=== PATIENT | male | born 1965 | race Caucasian/White ===

== ENCOUNTER 2017-04-12 07:58 | Inpatient (IN) | payer BC, OTHER ==
[~2017-04-12] VITALS: Ht 180.3 cm; Wt 72.6 kg
[2017-04-12] MEDS ORDERED: LORAZEPAM 1 MG TABLET PO PRN ×2 (21:30)
[2017-04-12] MEDS ORDERED: ONDANSETRON 4 MG/2 ML VIAL IM PRN (21:30)
[2017-04-12] MEDS ORDERED: BUPRENORPHINE HCL 2 MG TAB.SUBL SL PRN (21:30)
[2017-04-12] MEDS ORDERED: NICOTINE POLACRILEX 4 MG GUM-PK OF TEN BC PRN (21:30)
[2017-04-12] MEDS ORDERED: CLONIDINE HCL 0.1 MG TABLET PO PRN (21:30)
[2017-04-12] MEDS ORDERED: MIRALAX 17 GM POWD.PACK PO PRN (21:30)
[2017-04-12] MEDS ORDERED: LOPERAMIDE HCL 2 MG CAPSULE PO PRN ×2 (21:30)
[2017-04-12] MEDS ORDERED: ONDANSETRON ODT 4 MG TAB.RAPDIS SL PRN (21:30)
[2017-04-12] MEDS ORDERED: MAG HYDROX/AL HYDROX/SIMETH 30 ML LIQUID UDC PO PRN (21:30)
[2017-04-12] MEDS ORDERED: DOCUSATE SODIUM 250 MG CAPSULE PO PRN (21:30)
[2017-04-12] MEDS ORDERED: THIAMINE HCL 200 MG/2 ML VIAL IM ONE (21:30)
[2017-04-12] MEDS ORDERED: IBUPROFEN 600 MG TABLET PO PRN (21:30)
[2017-04-12] MEDS ORDERED: NICOTINE 14 MG/24HR PATCH TD PRN (21:30)
[2017-04-12] MEDS ORDERED: LORAZEPAM 2 MG/1 ML VIAL IM PRN (21:30)
[2017-04-12] MEDS ORDERED: ACETAMINOPHEN 325 MG TABLET PO PRN (21:30)
[2017-04-12] MEDS ORDERED: METHOCARBAMOL 750 MG TABLET PO PRN (21:30)
[2017-04-12] MEDS ORDERED: MAGNESIUM HYDROXIDE 30 ML LIQUID UDC PO PRN (21:30)
--- NOTE | 2017-04-12 21:35 | NUR ---
Pre-Admission Note Pt is a 52 y/o male, seen at intake, AAOx4, no SOB with anxiety noted at this time. Discussed with patient the admission policies of the unit. Patient is coherent and able to respond to questions appropriately. Pt is ambulatory with steady gait. Vital signs taken and as follows: BP: 139/91, P: 100, R: 20, O2: 96%, T: 98.1, PA: 0/10 Pt verbalized understanding of instructions and teachings regarding disposal of narcotic and other controlled home medications, unit protocols such as taking of vital signs Q4H and handling and disposal of contraband. Will continue with admission upon pts arrival on the unit.
[2017-04-12 21:43] VITALS: BP 139/91
--- NOTE | 2017-04-12 21:43 | NUR ---
Admission Note Pt is a 52 y/o male admitted on 04/12/17 for ETOH/Opiate dependence, arrived on the unit at 2143. Pt was able to provide UDS during intake. Pt reports NKA, reports seizure episode "about 7 days ago in the hospital". Pt was hospitalized at [facility] d/t withdrawal induced seizure . VS: BP: 139/91, P: 100, R: 20, O2: 96%, T: 98.1, PA: 0/10. Weight 160, height 511. Pt reports he does not have a PCP, smokes approximately 1 pack cigarettes daily. Pt is able to understand and respond to all questions pertaining to his hospitalization. Substance Abuse History is as follows: 1. Vodka 1750ml (1.75 liters)/daily, last intake of 1750ml on 04/06/2017, at this rate for the past 6 months. Pt reports he has been drinking for 20 years. 2. Butrans (Buprenorphine) Patch - 20mcg/hr every 7 days, last intake of 20mcg/hr on 04/09/2017, pt has been using for 4 years. Patch removed during intake process. Pt reports he was hospitalized "7 days ago at [facility] for seizure episode". Pt reports he was given Oxazepam for seizures and ETOH withdrawal, hence positive result of benzodiazepine in urine drug screen. Pts longest sober period from 2002 2013. Pt reports treatment history: [facility], 2002 for 90 days and [facility], 4 months ago for 30 days ago. PMH: Anxiety, depression, DM II, neuropathic pain, liver cirrhosis, hepatitis B and seizure episode 7 days ago due to ETOH withdrawal. Upon assessment, pt is AAOx4 and presents with anxiety, irritability, sweats, fine tremors and flushed skin with scab noted in between eye brows. Respirations even and unlabored. Denies SOB or chest pain. Bowel sounds active x 4, abdomen soft. PERRLA. Pt denies SI/HI at this time. Reports having history of suicidal thoughts with no plan. Educational information provided and left at bedside. Pt oriented to room and encouraged to notify staff with any concerns. Safety measures in place. Call light within reach, side rails up x 2, bed locked and in low position. Will continue to monitor.
[2017-04-12] MEDS ORDERED: OXAZ15CA PO (21:57)
[2017-04-12] MEDS ORDERED: GABA-534 PO (21:57)
[2017-04-12] MEDS ORDERED: QUET150T PO (21:57)
[2017-04-12] MEDS ORDERED: BUPR1PAT3 TD (21:57)
[2017-04-12] MEDS ORDERED: LORAZEPAM 1 MG TABLET PO SCH (23:00)
[2017-04-12 23:02] LABS: *AMPHETAMINE, URINE NEGATIVE (NEGATIVE); *BARBITURATE, URINE NEGATIVE (NEGATIVE); *CANNABINOID, URINE NEGATIVE (NEGATIVE); *COCCAINE, URINE NEGATIVE (NEGATIVE); *OPIATE, URINE NEGATIVE (NEGATIVE); *PHENCYCLIDINE SCREEN,URINE NEGATIVE (NEGATIVE)
[2017-04-12] MEDS: diphenhydrAMINE 50 MG CAPSULE PO PRN (23:26)
--- NOTE | 2017-04-12 23:26 | NUR ---
PRN Administration Scheduled Ativan 2mg and Benadryl 50mg PRN administered for sleep. Pt refused ordered Vitamin B1 injection. Education provided, risks/benefits explained. Safety measures in place, will continue to monitor.
[2017-04-12] MEDS ORDERED: diphenhydrAMINE 50 MG CAPSULE ONE (23:41)
[2017-04-12] MEDS ORDERED: LORAZEPAM 1 MG TABLET ONE (23:41)
[2017-04-13] VITALS: BP 126/86
--- NOTE | 2017-04-13 00:26 | NUR ---
PRN Reassessment Upon reassessment, pt is in bed, resting with eyes closed, respirations even/unlabored. Safety measures in place, will continue to monitor.
[2017-04-13] MEDS ORDERED: BUPR1FIL3 SL (02:04)
[2017-04-13] MEDS: KETOROLAC TROMETHAMINE 30 MG INJ IM PRN ×2 (03:24→16:41)
--- NOTE | 2017-04-13 03:26 | NUR ---
PRN Administration CIWA 10, pt is tremulous, dizzy/lightheaded, anxious, skin is flushed and clammy. Reports back ache 10/10. Ativan 1mg PRN and Toradol 30mg inj PRN administered. Safety measures in place, will continue to monitor.
[2017-04-13] MEDS ORDERED: KETOROLAC TROMETHAMINE 30 MG INJ ONE (03:36)
[2017-04-13] MEDS ORDERED: LORAZEPAM 1 MG TABLET ONE (03:41)
[2017-04-13 04:00] VITALS: BP 135/87
--- NOTE | 2017-04-13 04:26 | NUR ---
PRN Reassessment CIWA 8, pt in bed, resting. Pt reports relief of back pain. BP 135/87, pulse 93, resp 16, SpO2 97% room air, temp 98.1. Safety measures in place, will continue to monitor.
--- NOTE | 2017-04-13 07:07 | NUR ---
End of Shift Pt is a 52 year old male admitted for ETOH/Opiate dependence, placed on 5 day Ativan and 5 day Subutex taper. Pt reported using Vodka 1750ml (1.75 liters)/daily and Butrans (Buprenorphine)Patch - 20mcg/hr every 7 days. NKA, Diabetic diet, fall/seizure precautions and full code. Seizure episode 7 days ago due to ETOH withdrawal. PMH: Anxiety, depression, DM II, neuropathic pain, liver cirrhosis and hepatitis B. During shift scheduled Ativan 2mg administered along with Benadryl 50mg PRN for sleep. At 0326, Toradol 30mg inj PRN and Ativan 1mg PRN administered for elevated CIWA and back ache, effective. Latest COWS 4 and CIWA 8. Pt slept for 1 hours, intake of 591ml PO, voids x2 and stool x0. Safety measures in place, call light within reach, side rails up x2, bed locked and in low [id number]. Endorsed to day shift nurse.
--- NOTE | 2017-04-13 07:45 | NUR ---
START OF SHIFT PT IS A 52 Y/O M ADMITTED FOR ETOH AND OPIATE DEPENDENCE. PT IS ON 5 DAY ATIVAN AND 5 DAY SUBUTEX TAPER. PT REPORTS HAVING STOMACH SPASMS, GENERALIZED BODY ACHES, TEARING, FEELING COLD AND HOT INTERMITTENTLY, SLIGHT NAUSEA, MILD VISUAL DISTURBANCES, DIZZINESS. PT REPORTS HAVING PAIN AND NUMBNESS ON THE FEET AND FINGERS. PT REPORTS WALKING AND STRETCHING HELPS WITH PAIN. PT APPEARS TO BE FLUSHED AND TREMORS ARE SEEN. ENCOURAGED PT TO CONSUME MORE FLUIDS FOR HYDRATION. SIDE RAILS UP X2, BED IN LOWEST POSITION, CALL LIGHT WITHIN REACH. SZ AND FALL PRECAUTIONS TAKEN. WILL CONTINUE TO MONITOR AND PROVIDE SUPPORT.
[2017-04-13 08:00] VITALS: BP 125/88
[2017-04-13] MEDS: METFORMIN HCL 500 MG TABLET PO SCH ×2 (08:03→17:57)
[2017-04-13] MEDS: FOLIC ACID 1 MG TABLET PO SCH (08:03)
[2017-04-13] MEDS: DICYCLOMINE HCL 20 MG TABLET PO PRN ×2 (08:03→14:06)
[2017-04-13] MEDS: BUPRENORPHINE HCL 2 MG TAB.SUBL SL SCH ×4 (08:03→20:04)
[2017-04-13] MEDS: THIAMINE HCL 100 MG TABLET PO SCH (08:03)
[2017-04-13] MEDS: PREGABALIN 100 MG CAPSULE PO SCH ×2 (08:03→16:29)
[2017-04-13] MEDS: MULTIVITAMINS,THERAPEUTIC TABLET PO SCH (08:03)
[2017-04-13] MEDS: LORAZEPAM 1 MG TABLET PO SCH ×3 (08:03→20:04)
--- NOTE | 2017-04-13 08:03 | NUR ---
PRN PT C/O OF STOMACH CRAMPS AND SPASMS. BENTYL PO PRN GIVEN AT [phone]. WILL CONTINUE TO MONITOR FOR EFFECTIVENESS.
[2017-04-13 08:46] LABS: BASOPHILS # (AUTO) 0.1 K/uL (0.0-8.0); BASOPHILS % (AUTO) 0.8 % (0.0-2.0); EOSINOPHILS # (AUTO) 0.3 K/uL (0.0-0.7); EOSINOPHILS % (AUTO) 3.2 % (0.0-7.0); HEMATOCRIT 37.3 % (36.7-47.1); HEMOGLOBIN 12.8 g/dL (12.5-16.3); LYMPHOCYTES # (AUTO) 2.8 K/uL (20.0-40.0); LYMPHOCYTES % (AUTO) 34.5 % (20.5-51.5); MEAN CORPUSCULAR HEMOGLOBIN 30.8 uug (23.8-33.4); MEAN CORPUSCULAR HGB CONC 34 g/dL (32.5-36.3); MEAN CORPUSCULAR VOLUME 89.9 fL (73.0-96.2); MONOCYTES # (AUTO) 0.9 K/uL (2.0-10.0); MONOCYTES % (AUTO) 10.5 % (0.0-11.0); NEUTROPHILS # (AUTO) 4.2 K/uL (1.8-8.9); PLATELET COUNT (AUTO) 177 K/uL (152-348); RED BLOOD CELL COUNT(AUTO) 4.15 MIL/uL (4.06-5.63); WHITE BLOOD COUNT (AUTO) 8.2 K/uL (3.6-10.2)
[2017-04-13] MEDS ORDERED: TUBERCULIN,PURIF.PROT.DERIV. 5 TU/0.1 ML TEST ID ONE (09:00)
--- NOTE | 2017-04-13 09:03 | NUR ---
REASSESSMENT PT REPORTED THE MED WAS EFFECTIVE FOR HIS STOMACH CRAMPS AND SPASMS. WILL CONTINUE TO MONITOR AND PROVIDE SUPPORT.
[2017-04-13 09:11] LABS: ALANINE AMINOTRANSFERASE 100 U/L (16-63); ALKALINE PHOSPHATASE 102 U/L (50-136); ASPARTATE AMINOTRANSFERASE 48 U/L (15-37); BILIRUBIN,TOTAL 0.4 mg/dL (0.2-1.0); CARBON DIOXIDE 28 mmol/L (21-32); CHLORIDE 105 mmol/L (98-107); GLUCOSE 217 mg/dL (74-106); TOTAL PROTEIN, SERUM 7.2 g/dL (6.4-8.2); UREA NITROGEN, BLOOD 11 mg/dL (7-18)
[2017-04-13 09:17] LABS: ETHANOL < 3 MG/DL (0-0)
[2017-04-13] MEDS: GLIMEPIRIDE 2 MG TABLET PO SCH (09:19)
[2017-04-13 12:00] VITALS: BP 129/97
--- NOTE | 2017-04-13 12:38 | NUR ---
PRN PT STATED, "I JUST WOKE UP SHAKING VIOLENTLY AND I ONLY FELL ASLEEP FOR A SECOND." PT REPORTED HAVING HIGH ANXIETY AND PT APPEARS TO HAVING FACIAL FLUSHING. ATIVAN 2 MG PO PRN GIVEN. WILL CONTINUE TO MONITOR. Addendum: 04/13/17 at 1248 by KESHIA GROVES RN GROSS TREMORS SEEN. IGNACIA Low.
--- NOTE | 2017-04-13 12:52 | NUR ---
PRN PT C/O PAIN IN THE BACK AND FEET 6-10/18 PAIN. MOTRIN 600 MG PO PRN GIVEN. WILL CONTINUE TO MONITOR.
--- NOTE | 2017-04-13 13:36 | NUR ---
REASSESSMENT PT VERBALIZED ATIVAN WAS EFFECTIVE FOR HIS S/S OF W/D. PT APPEARS TO BE LESS ANXIOUS AND TREMULOUS. WILL CONTINUE TO MONITOR AND PROVIDE SUPPORT.
--- NOTE | 2017-04-13 13:52 | NUR ---
REASSESSMENT PT REPORTED MOTRIN WAS EFFECTIVE LOWERING PAIN TO TOLERABLE LEVELS. 07/19. WILL CONTINUE TO MONITOR AND PROVIDE SUPPORT.
--- NOTE | 2017-04-13 14:06 | NUR ---
PRN PT C/O OF STOMACH PAIN AND SPASMS; REQUESTED BENTYL. GIVEN AT 1406. WILL CONTINUE TO MONITOR FOR EFFECTIVENESS.
--- NOTE | 2017-04-13 15:06 | NUR ---
REASSESSMENT PT REPORTED BENTYL WAS EFFECTIVE FOR STOMACH CRAMPS AND SPASMS. WILL CONTINUE TO MONITOR.
[2017-04-13 16:00] VITALS: BP 139/93
--- NOTE | 2017-04-13 16:50 | NUR ---
PRN PT C/O PAIN IN THE BACK, NECK, FEET, AND JOINTS. 9/10 PAIN. TORADOL 30 MG IM INJ GIVEN. SZ AND FALL SAFETY PRECAUTIONS IN PLACE. WILL CONTINUE TO MONITOR.
--- NOTE | 2017-04-13 17:50 | NUR ---
REASSESSMENT PT REPORTED THE TORADOL WAS EFFECTIVE IN REDUCING HIS PAIN TO TOLERABLE LEVELS. WILL CONTINUE TO MONITOR AND PROVIDE SUPPORT.
--- NOTE | 2017-04-13 18:58 | NUR ---
END OF SHIFT PT IS A 52 Y/O M ADMITTED FOR ETOH AND OPIATE DEPENDENCE. PT IS ON 5 DAY ATIVAN AND SUBUTEX TAPER. PT APPEARS TO BE FLUSHED AND ANXIOUS. TREMORS ARE SEEN. PT REPORTS HAVING STOMACH SPASMS, GENERALIZED BODY ACHES, TEARING IN THE EYES, MILD NAUSEA, MILD VISUAL DISTURBANCES, AND INTERMITTENT DIZZINESS. PT REPORTS HAVING PINS AND NEEDLE-TYPE PAIN ON THE DISTAL FEET AND FINGERS. PT REPORTS WALKING AND STRETCHING HELPS WITH THE PAIN. PT ALSO REPORTS HAVING PAIN IN THE NECK, BACK, JOINTS THROUGHOUT THE DAY; TORADOL 30 IM INJ GIVEN AT 1640 AND WAS EFFECTIVE. ATIVAN 2 MG PO PRN GIVEN AT 1238 FOR INCREASED S/S OF W/D; PT REPORTED MED WAS EFFECTIVE. LAST COWS 8 AND CIWA 9 AT 1600. ENCOURAGED PT TO CONSUME MORE FLUIDS FOR HYDRATION. SIDE RAILS UP X2, BED IN LOWEST POSITION, CALL LIGHT WITHIN REACH. SZ AND FALL PRECAUTION MEASURES IN PLACE. WILL GIVE ALL ENDORSEMENT AND PERTINENT DATA TO MANAGER OF COMPLIANCE NURSE.
[2017-04-13 20:00] VITALS: BP 130/95
--- NOTE | 2017-04-13 20:00 | NUR ---
Start of Shift Pt is a 52 year old male admitted for ETOH/Opiate dependence, placed on 5 day Ativan and 5 day Subutex taper. Pt reported using Vodka 1750ml (1.75 liters)/daily and Butrans (Buprenorphine)Patch - 20mcg/hr every 7 days. NKA, Diabetic diet, fall/seizure precautions and full code. Seizure episode 7 days ago due to ETOH withdrawal. PMH: Anxiety, depression, DM II, neuropathic pain, liver cirrhosis and hepatitis B. Upon assessment, presents with muscle aches, back/joint aches, skin is flushed/clammy, tremors visible, reports chills, stomach cramps respirations even/unlabored, denies SOB/chest pain, denies n/v/d, medications due. Safety measures in place, will continue to monitor.
[2017-04-14] VITALS: BP 128/93
[2017-04-14] MEDS: diphenhydrAMINE 50 MG CAPSULE PO PRN (00:35)
[2017-04-14] MEDS: KETOROLAC TROMETHAMINE 30 MG INJ IM PRN ×4 (00:36→23:31)
--- NOTE | 2017-04-14 00:36 | NUR ---
PRN Administration Pt reports body aches rated 9/10. Pt requests sleep aid. Toradol 30mg Inj and Benadryl 50mg PRN administered. Safety measures in place, will continue to monitor.
--- NOTE | 2017-04-14 01:36 | NUR ---
PRN Reassessment Upon reassessment, pt denies body aches. Needs met, safety measures, will continue to monitor.
[2017-04-14 04:00] VITALS: BP 136/92
--- NOTE | 2017-04-14 04:00 | NUR ---
TRANG/CIWA deferred d/t pt sleeping, to assess while pt is awake as ordered. BP 136/92, pulse 87, resp 16, Spo2 99% room air, temp 97.[address], will continue to monitor.
--- NOTE | 2017-04-14 07:00 | NUR ---
End of Shift Pt is a 52 year old male admitted for ETOH/Opiate dependence, placed on 5 day Ativan and 5 day Subutex taper. Pt reported using Vodka 1750ml (1.75 liters)/daily and Butrans (Buprenorphine)Patch - 20mcg/hr every 7 days. NKA, Diabetic diet, fall/seizure precautions and full code. Seizure episode 7 days ago due to ETOH withdrawal. PMH: Anxiety, depression, DM II, neuropathic pain, liver cirrhosis and hepatitis B. During shift, presented with muscle aches, back/joint aches, skin flushed/clammy, tremors visible, reported chills, stomach cramps scheduled taper medications administered, COWS 9 and CIWA 9. Toradol 30mg inj and Benadryl 50mg PRN administered for body aches and sleep. Pt slept for 5 hours, intake of 850 ml PO, voids x2 and stool x0. Safety measures in place, call light within reach, side rails up x2, bed locked and in low position. Endorsed to day shift nurse.
[2017-04-14 08:00] VITALS: BP 126/88
[2017-04-14] MEDS: PREGABALIN 100 MG CAPSULE PO SCH ×2 (08:08→17:17)
[2017-04-14] MEDS: THIAMINE HCL 100 MG TABLET PO SCH (08:09)
[2017-04-14] MEDS: MULTIVITAMINS,THERAPEUTIC TABLET PO SCH (08:09)
[2017-04-14] MEDS: FOLIC ACID 1 MG TABLET PO SCH (08:09)
[2017-04-14] MEDS: BUPRENORPHINE HCL 2 MG TAB.SUBL SL SCH ×3 (08:09→20:31)
[2017-04-14] MEDS: METFORMIN HCL 500 MG TABLET PO SCH ×2 (08:09→17:17)
--- NOTE | 2017-04-14 08:10 | NUR ---
PRN TORADOL IM INJECTION Patient reports pain 8/10, generalized body aches. PRN toradol IM given. Will continue to monitor patient.
[2017-04-14] MEDS: GLIMEPIRIDE 2 MG TABLET PO SCH (08:11)
--- NOTE | 2017-04-14 08:22 | NUR ---
START OF SHIFT Received report from test technician nurse. Patient is 52 year old male admitted for medically supervised withdrawal from alcohol and opiate. Patient is full code with NKA. On 5-Day Ativan and 5-Day Subutex taper. On assessment this AM: CIWA: 12 and COWS: 9. Denies SOB, chest pain. Patients vitals signs WNL. Patient reports anxiety, tremors, headache, body aches, nausea, stomach cramping, and tactile disturbances. Denies stuffy nose, vomiting, diarrhea, auditory or visual hallucinations, yawning and no pupil dilation noted. Compliant with AM meds. PRN toradol IM injection given for pain 11/18. Last BM was 2 days ago. Patient has steady gait. Encouraged to attend group meetings today. Will continue to monitor patient.
--- NOTE | 2017-04-14 08:40 | NUR ---
REASSESSMENT PRN TORADOL IM INJECTION Patient reports pain decreased to 6/10, meed effective per patient.
[2017-04-14] MEDS ORDERED: LORAZEPAM 1 MG TABLET PO SCH ×2 (09:00→21:00)
--- NOTE | 2017-04-14 10:03 | NUR ---
Therapist prompted client to attend daily group sessions. Client related that he would if he was feeling up to it.
[2017-04-14 12:00] VITALS: BP 131/90
[2017-04-14] MEDS: LORAZEPAM 1 MG TABLET PO SCH ×2 (12:51→17:17)
--- NOTE | 2017-04-14 12:54 | NUR ---
PRN ROBAXIN AND CLONIDINE Patient complains of increasing anxiety and body aches. PRN clonidine (131/90, HR 94) and robaxin given. Will continue to monitor patient.
[2017-04-14 13:07] LABS: HEPATITIS B SURFACE AG Negative (Negative)
--- NOTE | 2017-04-14 13:54 | NUR ---
REASSESSMENT PRN ROBAXIN AND CLONIDINE Patient reports anxiety improved and body aches decreased to 5/10. Meds effective.
[2017-04-14] MEDS: DICYCLOMINE HCL 20 MG TABLET PO SCH ×2 (14:31→20:31)
[2017-04-14] MEDS: BACLOFEN 10 MG TABLET PO SCH ×2 (14:31→20:31)
[2017-04-14 16:00] VITALS: BP 129/92
--- NOTE | 2017-04-14 17:18 | NUR ---
PRN TORADOL IM INJECTION Patient complains of body aches 11/18. PRN toradol IM injection given. Will continue to monitor patient.
--- NOTE | 2017-04-14 17:48 | NUR ---
REASSESSMENT PRN TORADOL IM INJECTION Patient reports pain decreased to 5/10, med effective.
--- NOTE | 2017-04-14 18:50 | NUR ---
END OF SHIFT Patient is 52 year old male admitted for medically supervised withdrawal from alcohol and opiate. Patient is full code with NKA. On 5-Day Ativan and 5-Day Subutex taper. Most recent CIWA: 10 and COWS: 10. Reports anxiety, body aches, tremors, and tactile disturbances. PRN toradol IM injection X2, robaxin X1 and clonidine X1 given this shift, effective. Med complaint this shift. Ambulating with steady gait, no falls noted. Tolerated meals without nausea or vomiting. transport operations inspectormold shifter will continue to monitor patient.
[2017-04-14 20:00] VITALS: BP 124/87
--- NOTE | 2017-04-14 20:00 | NUR ---
Start of Shift Pt is a 52 year old male admitted for ETOH/Opiate dependence, placed on 5 day Ativan and 5 day Subutex taper. Pt reported using Vodka 1750ml (1.75 liters)/daily and Butrans (Buprenorphine)Patch - 20mcg/hr every 7 days. NKA, Diabetic diet, fall/seizure precautions and full code. Seizure episode 7 days ago due to ETOH withdrawal. PMH: Anxiety, depression, DM II, neuropathic pain, liver cirrhosis and hepatitis B. Upon assessment, pt reports feeling anxious/restless, presents with muscle aches, skin is flushed/clammy, tremors visible, reports chills, respirations even/unlabored, denies SOB/chest pain, denies n/v/d, medications due. Safety measures in place, will continue to monitor.
[2017-04-14] MEDS: QUETIAPINE FUMARATE 100 MG TABLET PO SCH (20:32)
[2017-04-14] MEDS: CLONIDINE HCL 0.1 MG TABLET PO SCH (20:32)
[2017-04-14] MEDS ORDERED: LORAZEPAM 1 MG TABLET PO ONE (23:30)
--- NOTE | 2017-04-14 23:31 | NUR ---
PRN Administration Pt reports 9/10 body aches. Pt is restless, anxious and is seen pacing hallways. Toradol 30mg inj PRN and Ativan 2mg x1 administered for pain and anxiety. Safety measures in place, will continue to monitor.
[2017-04-14] MEDS ORDERED: LORAZEPAM 1 MG TABLET ONE (23:40)
[2017-04-15] VITALS: BP 123/76
--- NOTE | 2017-04-15 00:31 | NUR ---
PRN Reassessment Pt is in bed watching TV. Pt reports feeling calmer, reports body aches have decreased to 4/10 and subsiding. Needs met, safety measures in place, will continue to monitor.
[2017-04-15 04:00] VITALS: BP 100/71
--- NOTE | 2017-04-15 07:00 | NUR ---
End of Shift Pt is a 52 year old male admitted for ETOH/Opiate dependence, placed on 5 day Ativan and 5 day Subutex taper. Pt reported using Vodka 1750ml (1.75 liters)/daily and Butrans (Buprenorphine)Patch - 20mcg/hr every 7 days. NKA, Diabetic diet, fall/seizure precautions and full code. Seizure episode 7 days ago due to ETOH withdrawal. PMH: Anxiety, depression, DM II, neuropathic pain, liver cirrhosis and hepatitis B. During shift, pt reported feeling anxious/restless, presented with muscle aches, skin flushed/clammy, tremors visible, reported chills scheduled taper medications administered, COWS 7 and CIWA 8. Ativan 2mg x1 and Toradol 30mg injection administered, effective. Pt slept for 2 hours, intake of 1250 ml PO, voids x2 and stool x0. Safety measures in place, call light within reach, side rails up x2, bed locked and in low position, endorsed to day shift nurse.
--- NOTE | 2017-04-15 08:08 | NUR ---
Nursing Note: Received pt in bedisde chair naping, verbalizing that did not got enough sleep, v/s stable, denies any other problem, no c/o pain.
[2017-04-15 08:49] VITALS: BP 117/77
[2017-04-15] MEDS: DICYCLOMINE HCL 20 MG TABLET PO SCH ×3 (08:50→21:39)
[2017-04-15] MEDS: METFORMIN HCL 500 MG TABLET PO SCH ×3 (08:51→18:00)
[2017-04-15] MEDS: CLONIDINE HCL 0.1 MG TABLET PO SCH ×3 (08:51→21:39)
[2017-04-15] MEDS: GLIMEPIRIDE 2 MG TABLET PO SCH (08:51)
[2017-04-15] MEDS: LORAZEPAM 1 MG TABLET PO SCH ×3 (08:52→21:38)
[2017-04-15] MEDS: THIAMINE HCL 100 MG TABLET PO SCH (08:53)
[2017-04-15] MEDS: MULTIVITAMINS,THERAPEUTIC TABLET PO SCH (08:53)
[2017-04-15] MEDS: FOLIC ACID 1 MG TABLET PO SCH (08:53)
[2017-04-15] MEDS: BACLOFEN 10 MG TABLET PO SCH (08:53)
[2017-04-15] MEDS: PREGABALIN 100 MG CAPSULE PO SCH ×3 (08:53→21:39)
[2017-04-15] MEDS ORDERED: BUPRENORPHINE HCL 2 MG TAB.SUBL SL SCH (09:00)
[2017-04-15 12:59] VITALS: BP 104/70
--- NOTE | 2017-04-15 13:45 | NUR ---
Pt in bed awake, alert, oriented x4 verbally responsive, ambulatory, self care, able to let know needs,was taking vodka 1750 ml daily for 6 month also butrams patch, he has hx of livedr cirrhosis, depresion, diabetic, hep B, spine/ limbar/r sholuder pain, and neuropathic pain, pt is constanlly in pain but able to funtion, on pain meds, pt likes to go smoke, is complient with meds, encourage to attend to groups, on ativan and subutex for 5 day, will continue monitoring a/r of any meds.
[2017-04-15] MEDS ORDERED: METHYL SALICYLATE/MENTHOL CREAM 28 GM TUBE TOP PRN (14:45)
[2017-04-15] MEDS: BUPRENORPHINE HCL 2 MG TAB.SUBL SL SCH ×2 (14:51→21:40)
[2017-04-15] MEDS ORDERED: NAPROXEN 500 MG TABLET PO ONE (15:00)
[2017-04-15 16:00] VITALS: BP 112/72
[2017-04-15] MEDS: ACETAMINOPHEN 325 MG TABLET PO SCH ×2 (16:36→21:38)
--- NOTE | 2017-04-15 17:49 | NUR ---
pt out for patio brake, alert, oriented x4, verbally responsive, ambulatory with good steady gait, continue on ativan an subutex taper,cows 5, c/o generalized pain 2/10, denies any n/v at this time, attended to some groups today, no distress and also continue with smoke brakes.
--- NOTE | 2017-04-15 18:49 | NUR ---
End note: there are no changes
--- NOTE | 2017-04-15 19:15 | NUR ---
START OF SHIFT NOTE : t is a 52 year old male admitted for ETOH/Opiate dependence, placed on 5 day Ativan and 5 day Subutex taper. NKA, Diabetic diet, fall/seizure precautions and full code. Seizure episode 7 days ago due to ETOH withdrawal. PMH: Anxiety, depression, DM II, neuropathic pain, liver cirrhosis and hepatitis B. Upon assessment pt. is resting in the room , watching TV, reports feeling anxious/restless, respirations even/unlabored, denies SOB/chest pain, denies n/v/d, medications due. Safety measures in place : bed on lowest position with side rails x2 up for safety, call light within reach. Will continue to monitor closely and offer help.
[2017-04-15 20:00] VITALS: BP 104/74
[2017-04-15] MEDS: NAPROXEN 500 MG TABLET PO SCH (21:38)
[2017-04-15] MEDS: BACLOFEN 20 MG TABLET PO SCH (21:39)
[2017-04-15] MEDS: QUETIAPINE FUMARATE 100 MG TABLET PO SCH (21:39)
--- NOTE | 2017-04-16 06:42 | NUR ---
END OF SHIFT NOTE : t is a 52 year old male admitted for ETOH/Opiate dependence, placed on 5 day Ativan and 5 day Subutex taper. NKA, Diabetic diet, fall/seizure precautions and full code. Seizure episode 7 days ago due to ETOH withdrawal. PMH: Anxiety, depression, DM II, neuropathic pain, liver cirrhosis and hepatitis B. Pt remains compliant with the treatment plan. No PRNs were given during my shift. V/S remain WNL. RR=16, even and unlabored, lungs clear upon auscultation, abdomen soft and non- distended. Pt denies nausea, vomiting and diarrhea. CIWA and COWS taken when pt. was alert during the night, LAST CIWA=5 ,COWS=5 at 0400 , INTAKE= 1,000 ml, voided x3 , slept 6 hours. Safety measures in place : bed on lowest position with side rails x2 up for safety, call light within reach. Will continue to monitor closely and offer help.
--- NOTE | 2017-04-16 07:47 | NUR ---
START OF SHIFT RECEIVED PT RESTING IN BED, A/O X4, RESPIRATIONS EVEN AND UNLABORED. PT REPORTS FEELING ANXIOUS AND RESTLESS, HAVING GENERALIZED BODY ACHES, PAIN IN THE DISTAL FEET AND HANDS. ENCOURAGED PT TO CONSUME MORE FLUIDS FOR HYDRATION. SIDE RAILS X2, BED IS IN LOWEST POSITION. CALL LIGHT IS WITHIN REACH. PT IS ON SZ AND FALL PRECAUTIONS. WILL CONTINUE TO MONITOR AND PROVIDE SUPPORT.
[2017-04-16 08:00] VITALS: BP 119/83
[2017-04-16 08:56] LABS: CREATININE 0.8 mg/dL (0.6-1.3); MAGNESIUM 2.2 mg/dL (1.8-2.4); POTASSIUM 4.1 mmol/L (3.5-5.1)
[2017-04-16] MEDS ORDERED: LORAZEPAM 1 MG TABLET PO SCH (09:00)
[2017-04-16] MEDS: GLIMEPIRIDE 2 MG TABLET PO SCH (09:18)
[2017-04-16] MEDS: NAPROXEN 500 MG TABLET PO SCH ×2 (09:18→21:56)
[2017-04-16] MEDS: DICYCLOMINE HCL 20 MG TABLET PO SCH ×3 (09:18→21:57)
[2017-04-16] MEDS: PREGABALIN 100 MG CAPSULE PO SCH ×3 (09:18→21:56)
[2017-04-16] MEDS: THIAMINE HCL 100 MG TABLET PO SCH (09:18)
[2017-04-16] MEDS: ACETAMINOPHEN 325 MG TABLET PO SCH ×3 (09:18→21:56)
[2017-04-16] MEDS: METFORMIN HCL 500 MG TABLET PO SCH ×2 (09:18→18:14)
[2017-04-16] MEDS: BACLOFEN 20 MG TABLET PO SCH ×3 (09:19→21:56)
[2017-04-16] MEDS: LORAZEPAM 1 MG TABLET PO SCH ×3 (09:19→21:56)
[2017-04-16] MEDS: FOLIC ACID 1 MG TABLET PO SCH (09:19)
[2017-04-16] MEDS: CLONIDINE HCL 0.1 MG TABLET PO SCH ×3 (09:19→21:57)
[2017-04-16] MEDS: FAMOTIDINE 20 MG TABLET PO SCH (09:19)
[2017-04-16] MEDS: MULTIVITAMINS,THERAPEUTIC TABLET PO SCH (09:19)
[2017-04-16] MEDS: BUPRENORPHINE HCL 2 MG TAB.SUBL SL SCH ×3 (09:20→21:57)
[2017-04-16 12:00] VITALS: BP 127/82
[2017-04-16 16:00] VITALS: BP 123/60
--- NOTE | 2017-04-16 19:24 | NUR ---
END OF SHIFT PT IS A/O X4, RESPIRATIONS EVEN AND UNLABORED. PT REPORTS FEELING ANXIOUS AND RESTLESS, HAVING GENERALIZED BODY ACHES, PAIN IN THE DISTAL FEET AND HANDS 5/10. PT SLEPT ON AND OFF MOST OF THE DAY AND REPORTED HE MISSED GROUP MEETING HIS MORNING DUE TO SLEEPING IN. LAST COWS 5 CIWA 4. ENCOURAGED PT TO CONSUME MORE FLUIDS FOR HYDRATION. SIDE RAILS X2, BED IS IN LOWEST POSITION. CALL LIGHT IS WITHIN REACH. PT IS ON SZ AND FALL PRECAUTIONS. WILL GIVE ALL PERTINENT INFORMATION AND ENDORSEMENT TO FACILITIES SPECIALIST NURSE.
--- NOTE | 2017-04-16 19:25 | NUR ---
Start of shift note Received report from day shift nurse. Pt is a 52 yo male, A+Ox4, presenting to [facility] for ETOH/Opiate dependence. Pt has NKA, is on Full code status, and on Consistent carb diet. Pt is on Fall and Seizure precautions. Pt has HX of Anxiety, depression, DMII, Neuropathic pain, Liver cirrhosis, Spinal Sx, Lumbar SX, Right shoulder SX, and Seizure. Pt is on 5 dy Ativan and 5 day Subutex tapers, tolerated well. Will continue to monitor.
[2017-04-16 20:18] VITALS: BP 116/76
[2017-04-16] MEDS: QUETIAPINE FUMARATE 100 MG TABLET PO SCH (21:57)
[2017-04-17 00:22] VITALS: BP 110/73
[2017-04-17 04:17] VITALS: BP 115/78
--- NOTE | 2017-04-17 07:00 | NUR ---
End of shift note Pt is a 52 yo male, A+Ox4, presenting to [facility] for ETOH/Opiate dependence. Pt has NKA, is on Full code status, and on Consistent carb diet. Pt is on Fall and Seizure precautions. Pt has HX of Anxiety, depression, DMII, Neuropathic pain, Liver cirrhosis, Spinal SX, Lumbar SX, Right shoulder SX, and Seizure. Pt is on 5 day Ativan and 5 day Subutex tapers, tolerated well. Pt slept for a total of 8 HRS. Last COWS: 3 and Last CIWA: 2 @0400. No s/s of distress noted at this time. Respirations even and unlabored. Will Continue to monitor.
--- NOTE | 2017-04-17 07:45 | NUR ---
START OF SHIFT RECEIVED PT LAYING IN BED, A/O X4, RESPIRATIONS EVEN AND UNLABORED. PT REPORTS HAVING MILD ANXIETY, PINS AND NEEDLE- LIKEPAIN IN THE DISTAL FEET AND HANDS. PT REPORTS FEELING BETTER TODAY THAN OTHER DAYS. ENCOURAGED PT TO CONSUME MORE FLUIDS FOR HYDRATION. SIDE RAILS X2, BED IS IN LOWEST POSITION. CALL LIGHT IS WITHIN REACH. PT IS ON SZ AND FALL PRECAUTIONS. WILL CONTINUE TO MONITOR AND PROVIDE SUPPORT.
[2017-04-17 08:00] VITALS: BP 107/78
[2017-04-17] MEDS: METFORMIN HCL 500 MG TABLET PO SCH ×2 (08:58→17:25)
[2017-04-17] MEDS: MULTIVITAMINS,THERAPEUTIC TABLET PO SCH (08:59)
[2017-04-17] MEDS: THIAMINE HCL 100 MG TABLET PO SCH (08:59)
[2017-04-17] MEDS: BACLOFEN 20 MG TABLET PO SCH ×3 (08:59→22:41)
[2017-04-17] MEDS: FAMOTIDINE 20 MG TABLET PO SCH (08:59)
[2017-04-17] MEDS: CLONIDINE HCL 0.1 MG TABLET PO SCH ×3 (08:59→22:41)
[2017-04-17] MEDS: DICYCLOMINE HCL 20 MG TABLET PO SCH ×3 (08:59→22:40)
[2017-04-17] MEDS: BUPRENORPHINE HCL 2 MG TAB.SUBL SL SCH ×2 (08:59→22:42)
[2017-04-17] MEDS ORDERED: LORAZEPAM 1 MG TABLET PO SCH (09:00)
[2017-04-17] MEDS: PREGABALIN 100 MG CAPSULE PO SCH (09:00)
[2017-04-17] MEDS: NAPROXEN 500 MG TABLET PO SCH ×2 (09:00→22:41)
[2017-04-17] MEDS: ACETAMINOPHEN 325 MG TABLET PO SCH ×3 (09:00→22:41)
[2017-04-17] MEDS ORDERED: BUPRENORPHINE HCL 2 MG TAB.SUBL SL SCH (09:00)
[2017-04-17] MEDS: FOLIC ACID 1 MG TABLET PO SCH (09:00)
[2017-04-17] MEDS: LORAZEPAM 1 MG TABLET PO SCH ×2 (09:00→22:41)
[2017-04-17] MEDS: GLIMEPIRIDE 2 MG TABLET PO SCH (09:05)
[2017-04-17 12:00] VITALS: BP_SYST 140; BP_SYST 95; BP_DIAS 63; BP_DIAS 88
[2017-04-17] MEDS ORDERED: PREGABALIN 50 MG CAPSULE PO SCH (13:00)
[2017-04-17] MEDS ORDERED: PREGABALIN 100 MG CAPSULE PO SCH (15:00)
[2017-04-17 16:00] VITALS: BP 108/66
--- NOTE | 2017-04-17 19:15 | NUR ---
END OF SHIFT PT IS A/O X4, RESPIRATIONS EVEN AND UNLABORED. PT REPORTS HAVING MILD ANXIETY, PINS AND NEEDLE- LIKEPAIN IN THE DISTAL FEET AND HANDS. LAST COWS 4 CIWA 3 AT 1600. PT REPORTS FEELING BETTER TODAY THAN OTHER DAYS. ENCOURAGED PT TO CONSUME MORE FLUIDS FOR HYDRATION. EDUCATION ON DM MEDICATIONS GIVEN TO PT AND AT BEDSIDE PER PT REQUEST. SIDE RAILS X2, BED IS IN LOWEST POSITION. CALL LIGHT IS WITHIN REACH. PT IS ON SZ AND FALL PRECAUTIONS. WILL GIVE ALL ENDORSEMENT AND ALL PERTINENT INFORMATION TO FLIGHT DISPATCHER NURSE.
--- NOTE | 2017-04-17 19:16 | NUR ---
Start of shift note Received report from day shift nurse. Pt is a 52 yo male, A+Ox4, presenting to [facility] for ETOH/Opiate dependence. Pt has NKA, is on Full code status, and on Consistent carb diet. Pt is on Fall and Seizure precautions. Pt has HX of Anxiety, depression, DMII, Neuropathic pain, Liver cirrhosis, Spinal Sx, Lumbar SX, Right shoulder SX, and Seizure. Pt is on 5 dy Ativan and 5 day Subutex tapers, tolerated well. Will continue to monitor.
[2017-04-17 20:29] VITALS: BP 148/88
[2017-04-17] MEDS: PREGABALIN 50 MG CAPSULE PO SCH (22:41)
[2017-04-17] MEDS: QUETIAPINE FUMARATE 100 MG TABLET PO SCH (22:41)
[2017-04-18 00:18] VITALS: BP 119/75
[2017-04-18 04:38] VITALS: BP 116/71
--- NOTE | 2017-04-18 06:51 | NUR ---
End of shift note Pt is a 52 yo male, A+Ox4, presenting to [facility] for ETOH/Opiate dependence. Pt has NKA, is on Full code status, and on Consistent carb diet. Pt is on Fall and Seizure precautions. Pt has HX of Anxiety, depression, DMII, Neuropathic pain, Liver cirrhosis, Spinal SX, Lumbar SX, Right shoulder SX, and Seizure. Pt is on 5 day Ativan and 5 day Subutex tapers, tolerated well. Pt slept for a total of 5 HRS. Last COWS: 4 and Last CIWA: 2 @0400. No s/s of distress noted at this time. Respirations even and unlabored. Will Continue to monitor.
--- NOTE | 2017-04-18 07:49 | NUR ---
START OF SHIFT RECEIVED PT LAYING IN BED, A/O X4, RESPIRATIONS EVEN AND UNLABORED. PT REPORTS HAVING MILD ANXIETY, PINS AND NEEDLE-LIKE PAIN IN THE DISTAL FEET AND HANDS 6/10. PT REPORTS HAVING SLEPT WELL LAST NIGHT. ENCOURAGED PT TO CONSUME MORE FLUIDS FOR HYDRATION. SIDE RAILS X2, BED IS IN LOWEST POSITION. CALL LIGHT IS WITHIN REACH. PT IS ON SZ AND FALL PRECAUTIONS. WILL CONTINUE TO MONITOR AND PROVIDE SUPPORT.
[2017-04-18 08:00] VITALS: BP 114/77
[2017-04-18] MEDS ORDERED: BUPRENORPHINE HCL 2 MG TAB.SUBL SL SCH (09:00)
[2017-04-18] MEDS ORDERED: LORAZEPAM 1 MG TABLET PO SCH (09:00)
[2017-04-18] MEDS: CLONIDINE HCL 0.1 MG TABLET PO SCH ×3 (09:32→22:06)
[2017-04-18] MEDS: METFORMIN HCL 500 MG TABLET PO SCH ×2 (09:32→17:33)
[2017-04-18] MEDS: THIAMINE HCL 100 MG TABLET PO SCH (09:32)
[2017-04-18] MEDS: FAMOTIDINE 20 MG TABLET PO SCH (09:32)
[2017-04-18] MEDS: DICYCLOMINE HCL 20 MG TABLET PO SCH ×3 (09:32→22:06)
[2017-04-18] MEDS: NAPROXEN 500 MG TABLET PO SCH ×2 (09:33→22:06)
[2017-04-18] MEDS: FOLIC ACID 1 MG TABLET PO SCH (09:33)
[2017-04-18] MEDS: BACLOFEN 20 MG TABLET PO SCH ×3 (09:33→22:06)
[2017-04-18] MEDS: MULTIVITAMINS,THERAPEUTIC TABLET PO SCH (09:33)
[2017-04-18] MEDS: ACETAMINOPHEN 325 MG TABLET PO SCH ×3 (09:33→20:37)
[2017-04-18] MEDS: PREGABALIN 50 MG CAPSULE PO SCH ×3 (09:33→22:05)
[2017-04-18] MEDS: GLIMEPIRIDE 2 MG TABLET PO SCH (09:34)
[2017-04-18 12:00] VITALS: BP 118/81
--- NOTE | 2017-04-18 13:12 | NUR ---
Therapist prompted client about group times. Client stated he will attend all groups today.
[2017-04-18 16:00] VITALS: BP 123/81
[2017-04-18] MEDS ORDERED: ACET325T53 PO (18:58)
[2017-04-18] MEDS ORDERED: METF500T4 PO (18:58)
[2017-04-18] MEDS ORDERED: DIPH50CA37 PO (18:58)
[2017-04-18] MEDS ORDERED: QUET100T PO (18:58)
[2017-04-18] MEDS ORDERED: FAMO20TA8 PO (18:58)
[2017-04-18] MEDS ORDERED: METH28OI2 TOP (18:58)
[2017-04-18] MEDS ORDERED: PREG50CA PO (18:58)
[2017-04-18] MEDS ORDERED: NAPR500T4 PO (18:58)
[2017-04-18] MEDS ORDERED: GLIM2TAB PO (18:58)
[2017-04-18] MEDS ORDERED: BACL20TA PO (18:58)
[2017-04-18] MEDS ORDERED: CLON0.1T14 PO (18:58)
[2017-04-18] MEDS ORDERED: DICY20TA28 PO (18:58)
--- NOTE | 2017-04-18 19:24 | NUR ---
END OF SHIFT PT IS 52 Y/O M ADMIITTED FOR ETOH AND OPIATE DEPENDENCE, A/O X4, RESPIRATIONS EVEN AND UNLABORED. PT REPORTS HAVING MILD ANXIETY, PINS AND NEEDLE-LIKE PAIN IN THE DISTAL FEET AND HANDS 09/18. LAST COWS 3 CIWA 2. PT IS TO BE D/C TOMORROW. ENCOURAGED PT TO CONSUME MORE FLUIDS FOR HYDRATION. SIDE RAILS X2, BED IS IN LOWEST POSITION. CALL LIGHT IS WITHIN REACH. PT IS ON SZ AND FALL PRECAUTIONS. WILL GIVE ALL PERTINENT INFORMATION AND ENDORSEMENT TO HEMODIALYSIS CHARGE NURSE NURSE.
--- NOTE | 2017-04-18 19:30 | NUR ---
START OF SHIFT Patient is a 52-year-old male admitted on 04/12/17 for ETOH (vodka) and buprenorphine patch dependence. Patient is FULL code, NKA, and on a diabetic diet. Patient has a past medical history of diabetes mellitus type 2, anxiety, depression, liver cirrhosis, and neuropathic pain. Patient has surgical history of the spine and right shoulder. Patient does have history of seizure related to withdrawal. Last seizure was 7 days prior to admission. Patient has completed a 5-day Ativan and 5-day Subutex taper, tolerated well. Patient is scheduled for discharge tomorrow. Upon assessment, patient is alert and oriented x4, skin dry and intact, complaining of some numbness/tingling of his extremities and some anxiety related to anticipating discharge. Patient is on fall and seizure precautions, safety measures in place. Bed is locked in low position, side rails up x2, call light within reach. Will continue to monitor.
[2017-04-18 20:00] VITALS: BP 104/80
--- NOTE | 2017-04-18 20:37 | NUR ---
PRN ZOFRAN Patient reports feeling nauseous, with one episode of emesis. PRN Zofran given SL. Safety measures in place, bed locked in low position, side rails up x2, call light within reach. Will reassess in 30 minutes.
--- NOTE | 2017-04-18 21:07 | NUR ---
PRN ZOFRAN REASSESSMENT Patient reports improvement in nausea, no additional episode of emesis. PRN Zofran effective. Safety measures in place, call light within reach, will continue to monitor.
[2017-04-18] MEDS: QUETIAPINE FUMARATE 100 MG TABLET PO SCH (22:05)
--- NOTE | 2017-04-19 | NUR ---
MIDNIGHT VITALS REFUSED, COWS AND CIWA DEFERRED Patient refused midnight vitals, respirations are 16/min, even and unlabored. COWS and CIWA deferred due to patient asleep; to be assessed and scored while patient is awake. Safety measures in place, call light within reach. Will continue to monitor.
--- NOTE | 2017-04-19 04:00 | NUR ---
VITALS REFUSED, COWS AND CIWA DEFERRED Patient refused 0400 vitals, respirations are 16/min, even and unlabored. COWS and CIWA deferred due to patient asleep; to be assessed and scored while patient is awake. Safety measures in place, call light within reach. Will continue to monitor.
--- NOTE | 2017-04-19 07:12 | NUR ---
END OF SHIFT Patient is a 52-year-old male admitted on 04/12/17 for ETOH (vodka) and buprenorphine patch dependence. Patient is FULL code, NKA, and on a diabetic diet. Patient has a past medical history of diabetes mellitus type 2, anxiety, depression, liver cirrhosis, and neuropathic pain. Patient has surgical history of the spine and right shoulder. Patient does have history of seizure related to withdrawal. Last seizure was 7 days prior to admission. Patient has completed a 5-day Ativan and 5-day Subutex taper, tolerated well. Patient is scheduled for discharge today. Patient slept for 7 hours, total intake of 855 mL, void x2, stool x0. Patient received PRN Zofran for nausea at 2038, with one reported episode of emesis. Upon reassessment, patient reported improvement of nausea and no further episodes of emesis. Last COWS score was 2, last CIWA was 5 R/T N/V. Patient is on fall and seizure precautions, safety measures in place. Bed is locked in low position, side rails up x2, call light within reach. Will endorse to day shift.
--- NOTE | 2017-04-19 07:28 | NUR ---
Start of shift note; Received report from night nurse. Patient is a 52 year old male admitted on 04/12/17 for ETOH, Opiate withdrawals. Patient completed treatment without any adverse reactions. Patient reported history of anxiety, DM type 2, depression, neuropathic pain, seizure history d/t withdrawals. Patient is medically cleared for discharge today. All safety measures secured. Will continue to monitor patient.
[2017-04-19 08:00] VITALS: BP 120/86
[2017-04-19] MEDS: GLIMEPIRIDE 2 MG TABLET PO SCH (08:25)
[2017-04-19 08:26] VITALS: BP 120/86
[2017-04-19] MEDS: NAPROXEN 500 MG TABLET PO SCH (08:26)
[2017-04-19] MEDS: MULTIVITAMINS,THERAPEUTIC TABLET PO SCH (08:26)
[2017-04-19] MEDS: FAMOTIDINE 20 MG TABLET PO SCH (08:26)
[2017-04-19] MEDS: ACETAMINOPHEN 325 MG TABLET PO SCH (08:26)
[2017-04-19] MEDS: DICYCLOMINE HCL 20 MG TABLET PO SCH (08:26)
[2017-04-19] MEDS: METFORMIN HCL 500 MG TABLET PO SCH (08:26)
[2017-04-19] MEDS: FOLIC ACID 1 MG TABLET PO SCH (08:26)
[2017-04-19] MEDS: CLONIDINE HCL 0.1 MG TABLET PO SCH (08:26)
[2017-04-19] MEDS: BACLOFEN 20 MG TABLET PO SCH (08:27)
[2017-04-19] MEDS: PREGABALIN 50 MG CAPSULE PO SCH (08:27)
[2017-04-19] MEDS: THIAMINE HCL 100 MG TABLET PO SCH (08:27)
--- NOTE | 2017-04-19 09:18 | NUR ---
Discharge note; Patient is AOX4. Patient completed treatment without any adverse reactions. Patient is medically cleared for discharge. All valuables, belongings, prescriptions given to patient. Patient left in a stable condition. Met all needs.
== END 2017-04-19 09:18 | disposition other institution (70) | DRG 895 ==
LOC: SRC 20:13
PROVIDERS: ADMIT Internal Medicine; ATTEND Internal Medicine
PROC: HZ2ZZZZ Detoxification Services for Substance Abuse Treatment (ICD-10-PCS; principal; 2017-04-12)
PROC: HZ41ZZZ Group Counseling for Substance Abuse Treatment, Behavioral (ICD-10-PCS; 2017-04-14)
PROC: HZ31ZZZ Individual Counseling for Substance Abuse Treatment, Behavioral (ICD-10-PCS; 2017-04-15)
DX: F10.230 Alcohol dependence with withdrawal, uncomplicated (principal); E11.40 Type 2 diabetes mellitus with diabetic neuropathy, unspecified; K70.9 Alcoholic liver disease, unspecified; F11.23 Opioid dependence with withdrawal; Y90.0 Blood alcohol level of less than 20 mg/100 ml; Z91.89 Other specified personal risk factors, not elsewhere classified; G47.00 Insomnia, unspecified; Z81.1 Family history of alcohol abuse and dependence; Z83.3 Family history of diabetes mellitus; F17.210 Nicotine dependence, cigarettes, uncomplicated; G89.29 Other chronic pain; M54.5 Low back pain; F41.9 Anxiety disorder, unspecified; F13.90 Sedative, hypnotic, or anxiolytic use, unspecified, uncomplicated; M54.2 Cervicalgia; E11.65 Type 2 diabetes mellitus with hyperglycemia
CPT/HCPCS: 36415; 70030-TC; 80307; 80346; 83735; 85025; 86580; 86592; 86705; 86803; 87340; 87806; A4663; G0480; J1885; Q0162; Q0163

== ENCOUNTER 2017-04-23 17:53 | Inpatient (IN) | payer OTHER, BC ==
[~2017-04-23] VITALS: Ht 180.3 cm; Wt 74.8 kg
[~2017-04-23 17:53] MED LIST: ACET325T53 PO; BACL20TA PO; CLON0.1T14 PO; DICY20TA28 PO; DIPH50CA37 PO; FAMO20TA8 PO; GLIM2TAB PO; METF500T4 PO; METH28OI2 TOP; NAPR500T4 PO; PREG50CA PO; QUET100T PO
--- NOTE | 2017-04-23 19:03 | NUR ---
PRE ADMISSION 52 year old male presented at intake office, at 1837 noted alert and oriented x4, able to verbalized and make needs known. Patients BP: 126/86 HR: 112, T: 98.2 R: 16, O2 SAT: 95% Room Air. Patient reports no known drug or food allergies. Patient reports coming here from [facility] ER, reports he was transferred there from [facility], per patient began feeling really sick, reports was having "seizures" per patient he received Ativan in the emergency department at [facility] Patient does not know how much he received at hospital. Patient was at [facility] for substance use history of: etoh and Butran patch. Patient reports has not had a drink or used Butran patch since admission at [facility]. Patient reports past medical history of: DM type 2, two surgeries to L5 and S1, Neck surgery, neuropathy, anxiety and seizure. Patient was educated regarding unit policies and procedures. with good verbal understanding. Patient arrived to [facility] unit at 1845, body search completed by male intake staff, no contraband found. body assessment completed by male nurse, skin is intact, no breakdown, or bruising noted. Patient is 165lbs and is 5 feet 11 inches. Patient was re-oriented to unit and to room, call light instructions/teaching provided. Patient was endorsed to maintenance technician 2nd shift nurse, all pertinent information was discussed.
[2017-04-23 19:06] LABS: *AMPHETAMINE, URINE NEGATIVE (NEGATIVE); *BARBITURATE, URINE NEGATIVE (NEGATIVE); *CANNABINOID, URINE NEGATIVE (NEGATIVE); *COCCAINE, URINE NEGATIVE (NEGATIVE); *OPIATE, URINE NEGATIVE (NEGATIVE); *PHENCYCLIDINE SCREEN,URINE NEGATIVE (NEGATIVE)
[2017-04-23] MEDS ORDERED: ACETAMINOPHEN 325 MG TABLET PO PRN (19:30)
[2017-04-23] MEDS ORDERED: MAG HYDROX/AL HYDROX/SIMETH 30 ML LIQUID UDC PO PRN (19:30)
[2017-04-23] MEDS ORDERED: ONDANSETRON 4 MG/2 ML VIAL IM PRN (19:30)
[2017-04-23] MEDS ORDERED: THIAMINE HCL 200 MG/2 ML VIAL IM ONE (19:30)
[2017-04-23] MEDS ORDERED: BUPRENORPHINE HCL 2 MG TAB.SUBL SL PRN (19:30)
[2017-04-23] MEDS ORDERED: LORAZEPAM 2 MG/1 ML VIAL IM PRN (19:30)
[2017-04-23] MEDS ORDERED: LORAZEPAM 1 MG TABLET PO PRN (19:30)
[2017-04-23] MEDS ORDERED: LOPERAMIDE HCL 2 MG CAPSULE PO PRN ×2 (19:30)
[2017-04-23] MEDS ORDERED: MAGNESIUM HYDROXIDE 30 ML LIQUID UDC PO PRN (19:30)
[2017-04-23] MEDS ORDERED: ONDANSETRON ODT 4 MG TAB.RAPDIS SL PRN (19:30)
[2017-04-23] MEDS ORDERED: DICYCLOMINE HCL 20 MG TABLET PO PRN (19:30)
[2017-04-23] MEDS ORDERED: MIRALAX 17 GM POWD.PACK PO PRN (19:30)
[2017-04-23] MEDS ORDERED: diphenhydrAMINE 50 MG CAPSULE PO PRN (19:30)
--- NOTE | 2017-04-23 19:30 | NUR ---
ADMISSION NOTE Pt is a 52 y/o male admitted today at 1845 for ETOH and opiate dependence, pre admission and skin/body check done by day shift nurse. Pt able to provide UDS. Pt is full code, NKA, regular diet and on fall/seizure precautions. Reports PMH of seizures r/t withdrawal x 2 (2 weeks ago and February 2017), anxiety, neuropathy, DM type 2, HTN, arthritis, insomnia, right ankle fracture, neck surgery (2015), L5 and S1 back surgery and appendectomy. Pt refuses flu/pneumonia vaccine. Vitals upon assessment are BP: 119/82, P: 83, R: 15, O2: 98%, T: 98.3, PA: 810. Weight 165, height 5'11. Pt reports his PCP is Dr. Walter Martin in [place], smokes approximately 1 pack cigarettes daily, denies being in long-term in past 30 days but was in [facility] and another hospital within the past week, qualifies for MRSA swab. Pt reports that he went to [facility] after d/c from [facility], but then got sent to [facility] this morning. Pt states, "I got sent to the ER today because I had a seizure. I had tremors all over my body." Pt reports "they gave me Ativan IV while I was at the hospital." Upon further assessment during admission assessment, pt states, "I was also in the ER because of low blood sugar." Pt did not bring any of his home medications but reports regularly taking the following: Metformin, Seroquel, Lyrica and Gabapentin. Pt is able to understand and respond to all questions pertaining to his hospitalization. Substance Abuse History is as follows: 1. Vodka 1.75 L daily, last intake of 1.75 L on 04/12/17, at this rate for 8 months. 2. Butrans (Buprenorphine) skin patch 20 mcg/hr changed every 7 days, last use of one patch on 04/12/17, at this rate for 4 years. Pts longest sober period was between 3722-0424. Pt reports the following treatment histories: [facility] in [place] between April 12-2017, [facility] in [place] between April 19-2017, [facility] in [place], 2002 for 90 days and [facility] in [place], 4 months ago for 30 days. Denies family medical or substance use history. Upon assessment, pt is AAOx4 and presents with anxiety, restlessness sweats and tremors. Pt also complains of chronic neck and back pain 8/10. Respirations even and unlabored. Denies SOB or chest pain. Pt states he has had numbness in lower extremities for the past 2 months. Bowel sounds active x 4, abdomen soft. Pt reports his last BM was 7 days ago. PERRLA. Skin intact, no open wounds noted. Pt denies SI/HI. Educational information provided and left at bedside. Pt oriented to room and encouraged to notify staff with any concerns. Safety measures in place. Call light within reach, side rails up x 2, bed locked and in low position. Will continue to monitor.
[2017-04-23] MEDS: IBUPROFEN 400 MG TABLET PO PRN (19:48)
[2017-04-23] MEDS: LORAZEPAM 1 MG TABLET PO PRN (19:48)
--- NOTE | 2017-04-23 19:48 | NUR ---
PRN ATIVAN 2 MG, MILK OF MAGNESIUM AND MOTRIN ADMINISTRATION CIWA 16, pt presents with anxiety, restlessness, tremors and sweats. Pt states "I haven't had a BM in 7 days," and requests medication for constipation. Pt complains of back and neck pain 11/18. Addendum: 04/24/17 at 0629 by NIRAJ TRIPLETT RN Spelling correction: Capo
[2017-04-23 20:00] VITALS: BP 119/82
[2017-04-23] MEDS ORDERED: IBUPROFEN 400 MG TABLET ONE (20:01)
[2017-04-23] MEDS ORDERED: LORAZEPAM 1 MG TABLET ONE (20:01)
[2017-04-23] MEDS ORDERED: THIAMINE HCL 200 MG/2 ML VIAL ONE (20:01)
[2017-04-23] MEDS ORDERED: MAGNESIUM HYDROXIDE 30 ML LIQUID UDC ONE (20:02)
[2017-04-23 20:21] LABS: BASOPHILS # (AUTO) 0.1 K/uL (0.0-8.0); BASOPHILS % (AUTO) 0.9 % (0.0-2.0); EOSINOPHILS % (AUTO) 0.5 % (0.0-7.0); HEMOGLOBIN 14.3 g/dL (12.5-16.3); LYMPHOCYTES # (AUTO) 2.3 K/uL (20.0-40.0); LYMPHOCYTES % (AUTO) 27.5 % (20.5-51.5); MEAN CORPUSCULAR HEMOGLOBIN 31.5 uug (23.8-33.4); MEAN CORPUSCULAR HGB CONC 34 g/dL (32.5-36.3); MEAN CORPUSCULAR VOLUME 92.3 fL (73.0-96.2); MONOCYTES # (AUTO) 0.6 K/uL (2.0-10.0); MONOCYTES % (AUTO) 7.4 % (0.0-11.0); NEUTROPHILS # (AUTO) 5.3 K/uL (1.8-8.9); NEUTROPHILS % (AUTO) 63.7 % (38.5-71.5); PLATELET COUNT (AUTO) 261 K/uL (152-348); RED BLOOD CELL COUNT(AUTO) 4.55 MIL/uL (4.06-5.63); WHITE BLOOD COUNT (AUTO) 8.4 K/uL (3.6-10.2)
[2017-04-23 20:46] LABS: ALANINE AMINOTRANSFERASE 80 U/L (16-63); ALKALINE PHOSPHATASE 50 U/L (50-136); AMYLASE 53 U/L (25-115); ASPARTATE AMINOTRANSFERASE 30 U/L (15-37); BILIRUBIN,TOTAL 0.7 mg/dL (0.2-1.0); CARBON DIOXIDE 29 mmol/L (21-32); CHLORIDE 107 mmol/L (98-107); GLUCOSE 98 mg/dL (74-106); LIPASE 210 U/L (73-393); MAGNESIUM 2.2 mg/dL (1.8-2.4); POTASSIUM 3.9 mmol/L (3.5-5.1); TOTAL PROTEIN, SERUM 7.6 g/dL (6.4-8.2); UREA NITROGEN, BLOOD 11 mg/dL (7-18)
--- NOTE | 2017-04-23 20:48 | NUR ---
PRN ATIVAN 2 MG, MILK OF MAG AND MOTRIN REASSESSMENT CIWA lowered to 6 with improvement in anxiety, restlessness, tremors and sweats. Denies having a BM. Pt reports he still has pain 5/10 in back and neck. Safety measures in place. Call light within reach. Will continue to monitor.
[2017-04-23 20:50] LABS: ETHANOL < 3 MG/DL (0-0)
[2017-04-23 20:57] LABS: THYROID STIMULATING HORMONE 1.088 mIU/mL (0.358-3.740)
[2017-04-23] MEDS: METHOCARBAMOL 750 MG TABLET PO PRN (21:23)
--- NOTE | 2017-04-23 21:25 | NUR ---
PRN ROBAXIN AND BENADRYL ADMINISTRATION Pt reports neck and back aches 09/18 and requests sleep aid for insomnia. Safety measures in place. Call light within reach. Will continue to monitor.
[2017-04-23] MEDS ORDERED: METHOCARBAMOL 750 MG TABLET ONE (21:38)
[2017-04-23] MEDS ORDERED: diphenhydrAMINE 50 MG CAPSULE ONE (21:43)
--- NOTE | 2017-04-23 22:25 | NUR ---
PRN ROBAXIN AND BENADRYL REASSESSMENT Pt laying in bed with eyes closed. Safety measures in place. Call light within reach. Will continue to monitor.
[2017-04-23] MEDS ORDERED: PREG150C PO (22:41)
--- NOTE | 2017-04-24 | NUR ---
COWS/CIWA DEFERRED AND VITALS REFUSED Pt laying in bed with eyes closed, COWS/CIWA deferred, to be assessed when pt is awake per orders. Vitals refused. Respirations 16, even and unlabored. Safety measures in place. Call light within reach. Will continue to monitor.
--- NOTE | 2017-04-24 07:04 | NUR ---
END OF SHIFT Pt is a 52 y/o male admitted yesterday for ETOH and opiate dependence. Pt was drinking 1.75 L of vodka daily and using a Butrans (Buprenorphine) patch regularly, last use on 04/12/17. Pt is full code, NKA, regular diet and on fall/seizure precautions. Reports PMH of seizures r/t withdrawal x 2 (2 weeks ago and February 2017), anxiety, neuropathy, DM type 2, HTN, arthritis, insomnia, right ankle fracture, neck surgery (2015), L5 and S1 back surgery and appendectomy. VS WNL. Pt reports that he went to [facility] after d/c from [facility] on 04/19/17, but then got sent to [facility] yesterday morning. Pt states, I got sent to the ER because I had a seizure. I had tremors all over my body. Pt reports they gave me Ativan IV while I was at the hospital. Upon further assessment during admission assessment, pt states, I was also in the ER because of low blood sugar. No ordered taper at this time, PRN Ativan and Subutex available. Upon assessment pt presented with anxiety, restlessness, sweats, tremors, back and neck pain 8/10 and difficulty sleeping. Pt states he has had numbness in lower extremities for the past 2 months. PRN Ativan 2 mg, Milk of Magnesia, Motrin, Robaxin and Benadryl administered, effective in S/S of withdrawal AEB CIWA 16 COWS 8 lowered to CIWA 6 COWS 8 during shift. Pt slept 4 hours. Intake 755 ml, void x 2, stool x 0. Pt reports his last BM was 7 days ago. Encouraged fluids. Safety measures in place. Call light within reach. Pts needs have been met. Endorsed to day shift nurse.
--- NOTE | 2017-04-24 07:38 | NUR ---
BEGINNING OF SHIFT Patient endorsement report received from warehouse worker 2nd shift nurse, all pertinent information discussed. Patient is a 52 year old male admitted on 04/23/2017. With admitting Dx: etoh/opiate dependence. Patient currently with no ongoing taper as ordered and is under close observation. patient with history of seizure, last seizure 2 weeks ago. patients fall and seizure precautions observed and in place. Patient received PRN: Benadryl, Robaxin, Motrin, MOM, and Ativan during warehouse worker 2nd shift, medications was effective. Patient slept for 4 hours with last ciwa score of: 6, last cow score of: 8. Patient skin is intact. Fall and seizure precautions observed at all times. Patient received in bed with eyes closed and respirations even and unlabored. Will educate patient regarding plan of care for the day and medication regimen. will monitor closely.
[2017-04-24 08:10] VITALS: BP 125/79
[2017-04-24] MEDS: IBUPROFEN 400 MG TABLET PO PRN (08:22)
[2017-04-24] MEDS: METHOCARBAMOL 750 MG TABLET PO PRN ×2 (08:22→21:00)
[2017-04-24] MEDS: THIAMINE HCL 100 MG TABLET PO SCH (08:22)
[2017-04-24] MEDS: FOLIC ACID 1 MG TABLET PO SCH (08:22)
[2017-04-24] MEDS: MULTIVITAMINS,THERAPEUTIC TABLET PO SCH (08:22)
--- NOTE | 2017-04-24 08:22 | NUR ---
PRN ATIVAN/MOTRIN/ROBAXIN Patient presenting with: heart rate of 81, c/o chills, irritable, increase anxiety, bone and joint aches, and mild agitation with cow score of: 6 and ciwa score of: 6, as per MD orders patient to receive Ativan 1mg PO as ordered for s/sx of withdrawal. Administered medication as ordered, will monitor closely. Patient also c/o pain 9/10 back aches, and muscle aches. Administered Motrin as ordered and Robaxin as ordered, will monitor effectiveness of medications.
[2017-04-24] MEDS ORDERED: NAPROXEN 500 MG TABLET PO PRN (08:45)
[2017-04-24] MEDS ORDERED: TUBERCULIN,PURIF.PROT.DERIV. 5 TU/0.1 ML TEST ID ONE (09:00)
[2017-04-24] MEDS: FAMOTIDINE 20 MG TABLET PO SCH (09:13)
[2017-04-24] MEDS: PREGABALIN 50 MG CAPSULE PO SCH ×3 (09:13→17:45)
[2017-04-24] MEDS: GLIMEPIRIDE 2 MG TABLET PO SCH (09:14)
--- NOTE | 2017-04-24 09:22 | NUR ---
ATIVAN REASSESSMENT Patients CIWA assessment completed, decreased currently with ciwa score of: 5, patient reports feeling less anxious. vital signs WNL. will continue to monitor.
--- NOTE | 2017-04-24 12:30 | NUR ---
MD COMMUNICATION Patient is scheduled to start a modified 4 day ativan taper for s/sx of withdrawal. new orders for blood sugar monitoring. will continue to monitor.
[2017-04-24 12:42] VITALS: BP 116/76
[2017-04-24] MEDS ORDERED: KETOROLAC TROMETHAMINE 30 MG INJ IM PRN (13:15)
[2017-04-24] MEDS ORDERED: DEXTROSE 50% 50 ML DISP.SYRIN IV PRN (13:15)
[2017-04-24] MEDS ORDERED: INSULIN REGULAR, HUMAN 300 UNITS/3 ML VIAL SQ PRN (13:15)
[2017-04-24] MEDS: LORAZEPAM 1 MG TABLET PO PRN (13:24)
--- NOTE | 2017-04-24 13:25 | NUR ---
PRN Pt observed in bed in room with bilateral gross hand tremors. Pt very anxious and restless. ciwa=17. Ativan 2mg po prn per MD order given and tolerated well.
[2017-04-24] MEDS ORDERED: LORAZEPAM 1 MG TABLET PO PRN ×2 (13:45)
--- NOTE | 2017-04-24 14:25 | NUR ---
ATIVAN REASSESSMENT Medication effective, ciwa score decreased to 9, patient reports feeling less anxious and less restless. vital signs WNL. will continue to monitor.
--- NOTE | 2017-04-24 16:30 | NUR ---
BLOOD SUGAR Patients blood glucose 143, insulin sliding scale as ordered. will continue to monitor.
[2017-04-24] MEDS: BLOOD SUGAR DIAGNOSTIC 1 EACH STRIP VI SCH ×2 (16:37→21:05)
[2017-04-24 16:42] VITALS: BP 122/81
[2017-04-24] MEDS: METFORMIN HCL 500 MG TABLET PO SCH (17:32)
[2017-04-24] MEDS: LORAZEPAM 1 MG TABLET PO SCH ×2 (17:32→21:01)
[2017-04-24] MEDS: INSULIN REGULAR, HUMAN 300 UNIT/3 ML VIAL SQ PRN (17:34)
--- NOTE | 2017-04-24 19:01 | NUR ---
END OF SHIFT Patient alert and oriented x4, vital signs WNL during shift. Patient compliant with therapeutic plan of care. Admitting Dx: etoh/opiate dependence. Patient was started on a modified Ativan taper as ordered by Dr. Barnhart for s/sx of withdrawal. Patient was also started on blood glucose monitoring. 1630 blood glucose 143, was administered 2 units of insulin as per sliding scale. Patient received PRN: Ativan x2, Motrin and Robaxin medications were effective, all due medications were administered as ordered, well tolerated. Patient presented with: elevated heart rate, sweats, increase anxiety, restlessness, agitation, bone and joint aches. 0900 CIWA:6, COW:6; 1300 CIWA:17, COW: 10; 1700 CIWA:9, COW: 6. Encouraged patient to increase PO fluid intake as tolerated, to facilitate detox. Educated patient regarding diabetic diet, with good verbal understanding. Encouraged patient to attend group therapies/sessions to learn new coping skills to prevent relapse. patient noted attending and participating, denies SI/HI. Safety measures in place. call light kept with in reach. all needs met and rendered, call light kept with in reach. Safety measures in place. Patient endorsed to disability benefits specialist nurse, all pertinent information discussed.
[2017-04-24 20:00] VITALS: BP 121/91
--- NOTE | 2017-04-24 20:00 | NUR ---
START OF SHIFT NOTE RECEIVED REPORT FROM DAY SHIFT NURSE. PATIENT IS A 52 YEAR OLD MALE ADMITTED FOR ETOH/OPIATE DEPENDENCE. PATIENT IS ON 4 DAY ATIVAN TAPER, STARTED TODAY. PATIENT REPORTS PMH OF SEIZURE R/T WITHDRAWAL ( 2 WEEKS AGO AND 2016, ANXIETY, NEUROPATHY, DM TYPE 2,HTN, ARTHRITIS, INSOMNIA, RIGHT ANKLE FRACTURE, NECK SURGERY (2015), BACK LS/SI SURGERY AND APPENDECTOMY. PATIENT IS ON CONSISTENT CARB/NCS DIET. PATIENT WAS GIVEN PRN ATIVAN X 2 AND ROBAXIN. PATIENT IS ON BLOOD SUGAR CHECK AND ON REGULAR INSULIN. LAST COWS 6 AND CIWA 9. LAST BLOOD SUGAR WAS 143, 2 UNITS OF REGULAR INSULIN GIVEN. RECEIVED PATIENT IN THE ROOM, WATCHING TV. ALERT AND ORIENTED X 4. PATIENT PRESENTS WITH ANXIETY, SLIGHT TREMORS, RESTLESS LEGS, PAIN ON BACK AND NECK 7/1O, NO N/V. SAFETY MEASURES IN PLACE. CALL LIGHT IN REACH. WILL CONTINUE TO MONITOR
[2017-04-24] MEDS: QUETIAPINE FUMARATE 100 MG TABLET PO SCH (21:00)
--- NOTE | 2017-04-24 21:00 | NUR ---
PRN ROBAXIN ADMINISTRATION PATIENT C/O NECK AND LOWER BACK PAIN 10/18. WILL MONITOR FOR EFFECTIVENESS
--- NOTE | 2017-04-24 22:00 | NUR ---
PRN ROBAXIN RE-ASSESSMENT PATIENT STATES ROBAXIN IS HELPFUL AND EFFECTIVE. NO PAIN AT THIS TIME. PAIN LEVEL IS 0/10. WILL CONTINUE TO MONITOR.
[2017-04-25] VITALS: BP 136/85
--- NOTE | 2017-04-25 | NUR ---
COWS/CIWA DEFERRED PATIENT SLEEPING. COWS AND CIWA DEFERRED. RESPIRATION EVEN AND UNLABORED. SAFETY MEASURES IN PLACE. CALL LIGHT IN REACH. WILL CONTINUE TO MONITOR.
[2017-04-25 04:00] VITALS: BP 111/71
--- NOTE | 2017-04-25 04:00 | NUR ---
COWS/CIWA DEFERRED PATIENT SLEEPING. COWS AND CIWA DEFERRED. RESPIRATION EVEN AND UNLABORED. SAFETY MEASURES IN PLACE. CALL LIGHT IN REACH. WILL CONTINUE TO MONITOR.
--- NOTE | 2017-04-25 07:08 | NUR ---
END OF SHIFT NOTE PATIENT SLEPT 8 HOURS. FLUID INTAKE 811 ML. VOIDED X 2 . BM X 1. CONTINUE PATIENT IS ON ATIVAN TAPER, TOLERATED WELL AND NO ADVERSE REACTION. PATIENT WAS ANXIOUS , NOTED WITH SLIGHT TREMORS, REPORTS RESTLESS LEGS AND PAIN ON BACK AND NECK 10/18 BEGINNING OF SHIFT. AT 2100, PATIENTS BLOOD SUGAR WAS 109, NO INSULIN COVERAGE. PRN ROBAXIN WAS GIVEN. PATIENT IN HIS ROOM, MOST OF THE SHIFT. SAFETY MEASURES IN PLACE. CALL LIGHT IN REACH. WILL CONTINUE TO MONITOR. LAST COWS 6 AND CIWA 5.
--- NOTE | 2017-04-25 07:30 | NUR ---
Start of Shift Report: A/O X4 CIWA 7 COW 4 c/o anxiety and slight tremors on ativan 5 day tamper. Encourage Fluids and rest 0730 Blood Sugar 120 No coverage given. Compliant with am meds, Denies of any pain. Continue to mointor for safety. Siderails up.
[2017-04-25] MEDS: BLOOD SUGAR DIAGNOSTIC 1 EACH STRIP VI SCH ×4 (07:36→20:31)
[2017-04-25] MEDS: GLIMEPIRIDE 2 MG TABLET PO SCH (08:12)
[2017-04-25] MEDS: THIAMINE HCL 100 MG TABLET PO SCH (08:13)
[2017-04-25] MEDS: FOLIC ACID 1 MG TABLET PO SCH (08:13)
[2017-04-25] MEDS: MULTIVITAMINS,THERAPEUTIC TABLET PO SCH (08:13)
[2017-04-25] MEDS: FAMOTIDINE 20 MG TABLET PO SCH (08:13)
[2017-04-25] MEDS: METFORMIN HCL 500 MG TABLET PO SCH ×2 (08:13→17:51)
[2017-04-25] MEDS: PREGABALIN 50 MG CAPSULE PO SCH ×3 (08:13→17:47)
[2017-04-25 08:20] VITALS: BP_SYST 122
[2017-04-25] MEDS: LORAZEPAM 1 MG TABLET PO SCH ×2 (08:25→15:26)
--- NOTE | 2017-04-25 10:55 | NUR ---
Therapist prompted client about group times. Client stated he would attend all groups today.
[2017-04-25 12:21] VITALS: BP 131/78
[2017-04-25] MEDS: METHOCARBAMOL 750 MG TABLET PO PRN (12:31)
--- NOTE | 2017-04-25 13:00 | NUR ---
C/o 7-10 back and neck pain given Toradol Im and robaxin
[2017-04-25 13:11] LABS: HEPATITIS B SURFACE AG Negative (Negative)
--- NOTE | 2017-04-25 13:51 | NUR ---
Lying in bed denies of any pain medication effective.
[2017-04-25 16:36] VITALS: BP 113/69
[2017-04-25] MEDS ORDERED: BACLOFEN 10 MG TABLET PO ONE (17:00)
[2017-04-25] MEDS: CLONIDINE HCL 0.1 MG TABLET PO PRN (17:56)
--- NOTE | 2017-04-25 18:05 | NUR ---
END of Shift Report: A/0 x4 C/o anxiety about discharge tomorrow COW 7 CIWA 7 Skin warm and dry color is good. Accu Check 156 given 2 Units [place] [address]. Given Catapres 0.1mg for s/s w/d. Ate 100% of dinner. Continue to observe for safety. siderails up.
[2017-04-25 20:00] VITALS: BP 122/76
--- NOTE | 2017-04-25 20:00 | NUR ---
START OF SHIFT NOTE RECEIVED REPORT FROM DAY SHIFT NURSE. PATIENT IS A 52 YEAR OLD MALE ADMITTED FOR ETOH/OPIATE DEPENDENCE. PATIENT COMPLETED ATIVAN TAPER, TOLERATED WELL AND NO ADVERSE REACTION . PATIENT IS MEDICALLY CLEARED TO BE DISCHARGE TOMORROW. PATIENT WAS ANXIOUS DURING THE DAY. LAST BLOOD SUGAR WAS 156 , 2 UNITS OF REGULAR INSULIN GIVEN. PATIENT WAS GIVEN PRN TORADOL IM INJECTION FOR NECK AND BACK PAIN. LAST COWS 7 AND CIWA 7. RECEIVED PATIENT IN THE ROOM , RESTING. PATIENT STATES HES ANXIOUS DUE TO HIM LEAVING. RELAXATION TECHNIQUE PROVIDED AND POSITIVE ENCOURAGEMENT GIVEN. SAFETY MEASURES IN PLACE. CALL LIGHT IN REACH. WILL CONTINUE TO MONITOR
[2017-04-25] MEDS: BACLOFEN 20 MG TABLET PO SCH (20:27)
[2017-04-25] MEDS: QUETIAPINE FUMARATE 100 MG TABLET PO SCH (20:27)
[2017-04-25] MEDS: NAPROXEN 500 MG TABLET PO SCH (20:27)
[2017-04-26] VITALS: BP 124/75
--- NOTE | 2017-04-26 | NUR ---
COWS AND CIWA DEFERRED PATIENT SLEEPING. COWS AND CIWA DEFERRED. RESPIRATION EVEN AND UNLABORED. SAFETY MEASURES IN PLACE. CALL LIGHT IN REACH. WILL CONTINUE TO MONITOR
--- NOTE | 2017-04-26 04:00 | NUR ---
COWS AND CIWA DEFERRED PATIENT SLEEPING. COWS AND CIWA DEFERRED. VS REFUSED. RESPIRATION EVEN AND UNLABORED. SAFETY MEASURES IN PLACE. CALL LIGHT IN REACH. WILL CONTINUE TO MONITOR
--- NOTE | 2017-04-26 06:54 | NUR ---
START OF SHIFT NOTE PATIENT SLEPT 10 HOURS. FLUID INTAKE 350 ML. VOIDED X 1. NO BM. PATIENT COMPLETED ATIVAN TAPER, TOLERATED WELL AND NO ADVERSE REACTION . PATIENT IS MEDICALLY CLEARED TO BE DISCHARGE TODAY. PATIENT WAS ANXIOUS BEGINNING OF THE SHIFT DUE TO HIM LEAVING, RELAXATION TECHNIQUE PROVIDED AND POSITIVE ENCOURAGEMENT GIVEN. PATIENT DID NOT REQUIRE ANY PRN MEDICATION. PATIENT IN THE ROOM MOST OF THE SHIFT. BLOOD SUGAR AT 2100 WAS 79, NO INSULIN COVERAGE PER SLIDING SCALE. SAFETY MEASURES IN PLACE. CALL LIGHT IN REACH. WILL CONTINUE TO MONITOR . LAST COWS 1 AND CIWA 1. Addendum: 04/26/17 at 0701 by CM VALERA LVN END OF SHIFT NOTE
--- NOTE | 2017-04-26 07:10 | NUR ---
Start Of Shift Received report from cook night nurse. Patient is a 52 year old male admitted for ETOH/Opiate dependence. Pt full code CCHO diet no known allergies on fall and seizure precautions. Pt was on a 4 day Ativan taper. Patient completed Ativan taper, tolerated well and no adverse reaction . Patient is medically cleared to be discharge today. Patient was anxious during the day. Last blood sugar was 79. Patient was not given any PRN medications. Last COWS 1 and CIWA 1. Received patient in the room , resting. Patient states he is anxious due to him leaving. Encouraged PO fluids to help facilitate detox process. Relaxation technique provided and positive encouragement given. Safety measures in place. Call light in reach. Will continue to monitor
[2017-04-26 08:00] VITALS: BP 111/77
[2017-04-26] MEDS ORDERED: LORAZEPAM 1 MG TABLET PO SCH (09:00)
[2017-04-26] MEDS: PREGABALIN 50 MG CAPSULE PO SCH (09:08)
[2017-04-26] MEDS: BLOOD SUGAR DIAGNOSTIC 1 EACH STRIP VI SCH ×2 (09:08→11:30)
[2017-04-26] MEDS: NAPROXEN 500 MG TABLET PO SCH (09:08)
[2017-04-26] MEDS: METFORMIN HCL 500 MG TABLET PO SCH (09:08)
[2017-04-26] MEDS: FOLIC ACID 1 MG TABLET PO SCH (09:09)
[2017-04-26] MEDS: MULTIVITAMINS,THERAPEUTIC TABLET PO SCH (09:09)
[2017-04-26] MEDS: GLIMEPIRIDE 2 MG TABLET PO SCH (09:09)
[2017-04-26] MEDS: FAMOTIDINE 20 MG TABLET PO SCH (09:09)
[2017-04-26] MEDS: THIAMINE HCL 100 MG TABLET PO SCH (09:09)
[2017-04-26] MEDS: BACLOFEN 20 MG TABLET PO SCH (09:09)
[2017-04-26] MEDS: CLONIDINE HCL 0.1 MG TABLET PO PRN (10:15)
[2017-04-26] MEDS: INSULIN REGULAR, HUMAN 300 UNIT/3 ML VIAL SQ PRN (10:16)
[2017-04-26 12:00] VITALS: BP 119/67
--- NOTE | 2017-04-26 13:01 | NUR ---
DISCHARGE NOTE Pt is in stable condition. Vitals WNL, Pt alert and oriented x4, skin intact, Pt denies any SI/HI. All discharge paperwork completed dated and signed. Pt educated about discharge instructions, what to do after discharge when to contact MD as well as the s/s reportable to MD, pt verbalized understanding. Pt was provided with all of his discharge paperwork. Pt's last COWS:1 and CIWA:1 taken at 0800. Pt was discharged from [facility] on 04/26/17 at 1300. Pt left the building with all of his belongings and prescriptions. MD and psychiatrist have been contacted notified and aware of pt's d/c.
== END 2017-04-26 13:00 | DRG 895 ==
LOC: SRC 17:53
PROVIDERS: ADMIT Internal Medicine; ATTEND Internal Medicine
PROC: HZ2ZZZZ Detoxification Services for Substance Abuse Treatment (ICD-10-PCS; principal; 2017-04-23)
PROC: HZ41ZZZ Group Counseling for Substance Abuse Treatment, Behavioral (ICD-10-PCS; 2017-04-24)
DX: F10.230 Alcohol dependence with withdrawal, uncomplicated (principal); E11.649 Type 2 diabetes mellitus with hypoglycemia without coma; F03.90 Unspecified dementia, unspecified severity, without behavioral disturbance, psychotic disturbance, mood disturbance, and anxiety; K70.9 Alcoholic liver disease, unspecified; G62.9 Polyneuropathy, unspecified; F11.23 Opioid dependence with withdrawal; F41.9 Anxiety disorder, unspecified; G47.00 Insomnia, unspecified; Z83.3 Family history of diabetes mellitus; Z81.1 Family history of alcohol abuse and dependence; Z80.9 Family history of malignant neoplasm, unspecified; F17.210 Nicotine dependence, cigarettes, uncomplicated; Z91.89 Other specified personal risk factors, not elsewhere classified; G89.29 Other chronic pain; Y90.0 Blood alcohol level of less than 20 mg/100 ml; Z79.899 Other long term (current) drug therapy; M50.90 Cervical disc disorder, unspecified, unspecified cervical region; M54.5 Low back pain
CPT/HCPCS: 36415; 70030-TC; 80307; 83690; 83735; 84443; 85025; 86592; 86705; 86803; 87340; 87806; A4663; G0480; J1815; J1885; J3411; Q0163